=== PATIENT | male | born 1970 | race Caucasian/White ===

== ENCOUNTER 2017-01-05 18:05 | Emergency (ER) | payer BC ==
[~2017-01-05] VITALS: Ht 182.9 cm; Wt 79.8 kg
[~2017-01-05 18:05] MED LIST: ADVIN25050 INH; ALBU1AER9 INH; MONT1TAB3 PO
[2017-01-05 18:09] VITALS: TEMP 36.5; Ht 182.9 cm; Wt 79.8 kg
[2017-01-05] MEDS ORDERED: SNG10 PO (18:24)
[2017-01-05] MEDS ORDERED: ALBU18002 INH (18:24)
[2017-01-05] MEDS ORDERED: ADVIN25/60 INH (18:24)
[2017-01-05] MEDS ORDERED: FLNIN/ NAE (18:24)
[2017-01-05] MEDS ORDERED: IBUPROFEN 200 MG TAB PO STA (18:29)
[2017-01-05] MEDS ORDERED: KETOROLAC TROMETHAMINE 60 MG/2 ML VIAL IM STA (18:34)
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
[2017-01-05 19:40] VITALS: BP 151/106; PULSE 78; O2SAT 96
== END 2017-01-05 19:36 | disposition home or self-care (01) ==
LOC: C.EDB 18:07 → C.EDD 19:36
DX: T14.8 Other injury of unspecified body region (principal); M79.631 Pain in right forearm; M79.645 Pain in left finger(s); V18.0XXA Pedal cycle driver injured in noncollision transport accident in nontraffic accident, initial encounter; Y92.89 Other specified places as the place of occurrence of the external cause; J45.909 Unspecified asthma, uncomplicated; Z79.899 Other long term (current) drug therapy

== ENCOUNTER 2023-02-02 18:45 | Inpatient (IN) ==
[2023-02-02] MEDS ORDERED: ONDANSETRON INJ 2 MG/ML 2 ML VIAL IV STA (18:48)
[2023-02-02] MEDS ORDERED: HYDROmorphone INJ 1 MG/ML SYRINGE IV STA ×2 (18:48→20:23)
[2023-02-02] MEDS ORDERED: ceFAZolin 2000MG 2,000 MG/15 ML SYR IV STA (18:48)
[2023-02-02] MEDS ORDERED: SODIUM CHLORIDE 0.9% 1000ML 1,000 ML IV SCH ×2 (19:00→23:15)
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
[2023-02-02 19:06] LABS: Basophils # (auto) 0.01 K/uL (0-0.2); Basophils % (auto) 0.1 %; Hematocrit (blood only) 40.8 % (42.0-52.0); Hemoglobin 14.3 g/dl (14.0-18.0); Immature Granulocytes # (auto) 0.04 K/uL (0.01-0.20); Immature Granulocytes % (auto) 0.5 %; Lymphocytes # (auto) 0.78 K/uL (1.2-3.4); Lymphocytes % (auto) 8.9 %; Mean Corpuscular Hemoglobin 31.5 pg (25.0-34.0); Mean Corpuscular Volume 89.9 fL (80.0-100.0); Mean Platelet Volume 10.8 fL (9.4-12.4); Monocytes # (auto) 0.49 K/uL (0.11-0.59); Monocytes % (auto) 5.6 %; Neutrophils # (auto) 7.49 K/uL (1.40-6.50); Neutrophils % (auto) 84.9 %; Platelet Count 302 K/uL (130-400); RDW Coefficient of Variation 11.9 % (11.5-14.5); RDW Standard Deviation 38.8 fL (36.4-46.3); Red Blood Count 4.54 M/uL (4.70-6.10); White Blood Count 8.81 K/ul (4.8-10.8)
[2023-02-02] MEDS ORDERED: OPTIRAY 320 100ml IV ONE (19:17)
[2023-02-02 19:22] LABS: Albumin Globulin Ratio 1.7 (0.9-2); Albumin Level 4.2 gm/dl (3.4-5.0); BUN Creatinine Ratio 18.3 (10-20); Bilirubin,Total 0.5 mg/dl (0.2-1.0); Calcium 8.9 mg/dl (8.6-10.3); Creatinine Clr Calc Pharmacy 80.6 ml/min; Est GFR (African American) 83.2 ml/min; Est GFR (Non-African American) 71.7 ml/min; Globulin 2.5 gm/dl (2.5-4.0); Potassium 4.1 mmol/L (3.5-5.1); Total Protein 6.7 gm/dl (6.0-8.3)
[2023-02-02] MEDS ORDERED: LORazepam 2 MG/1 ML VIAL IV STA (19:24)
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
[2023-02-02] MEDS ORDERED: BUPIVACAINE 0.5 % 5 MG/1 ML MPF 30ML VIAL ONE (21:28)
[2023-02-02] MEDS ORDERED: ePHEDrine sulfate 50 MG/ML AMP IV PRN (21:43)
[2023-02-02] MEDS ORDERED: ATROPINE SULFATE 0.1 MG/ML 10ML SYR IV PRN (21:43)
[2023-02-02] MEDS ORDERED: ONDANSETRON INJ 2 MG/ML 2 ML VIAL IV PRN ×2 (21:43→23:07)
[2023-02-02] MEDS ORDERED: PROMETHAZINE HCL 6.25 MG in SODIUM CHLORIDE 0.9% 50 ML IV PRN (21:43)
[2023-02-02] MEDS ORDERED: HYDROmorphone INJ 2 MG/ML SYR/VIAL IV PRN (21:43)
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
[2023-02-02] MEDS ORDERED: fentaNYL citrate PF 100 MCG/2 ML VIAL ONE ×2 (22:03→23:27)
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
[2023-02-02] MEDS ORDERED: PROPOFOL IV EMULSION 10 MG/ML 20 ML VIAL IV ONE (22:58)
[2023-02-02] MEDS ORDERED: GLYCOPYRROLATE 0.2 MG/ML VIAL ONE (22:58)
[2023-02-02] MEDS ORDERED: DEXAMETHASONE SOD INJ 4 MG/ML VIAL ONE (22:58)
[2023-02-02] MEDS ORDERED: LIDOCAINE 2% 2 ML VIAL/AMP(20MG/ML) INFIL ONE (22:58)
[2023-02-02] MEDS ORDERED: ROCURONIUM BROMIDE 10 MG/ML 5 ML VIAL IV ONE (22:58)
[2023-02-02] MEDS ORDERED: NEOSTIGMINE METHYLSULFATE 1 MG/ML 10ML VIAL ONE (22:58)
[2023-02-02] MEDS ORDERED: KETOROLAC 30 MG/ML VIAL ONE (22:58)
[2023-02-02] MEDS ORDERED: SUCCINYLCHOLINE CHLORIDE 20 MG/ML 10 ML VIAL IV ONE (22:58)
[2023-02-02] MEDS ORDERED: MoRPHine SULFATE 2 MG/ML CARP ONE (23:01)
[2023-02-02] MEDS ORDERED: NALOXONE HCL 0.4 MG/1 ML VIAL/CARP IV PRN (23:07)
[2023-02-02] MEDS ORDERED: MAGNESIUM HYDROXIDE SUSP 30 ML UDC PO PRN (23:07)
[2023-02-02] MEDS ORDERED: METOCLOPRAMIDE HCL INJ 5 MG/ML 2 ML VIAL IV PRN (23:07)
[2023-02-02] MEDS ORDERED: bisacodyL 10 MG SUPP PR PRN (23:07)
--- NOTE | 2023-02-02 23:12 | Post Operative Brief Note ---
Immediate Post Op Note v1 Date of Surgery February 02, 2023 Pre & Post Diagnosis Operation Date: 02/02/23 21:30 Pre-Op Diagnosis: Open fracture of right distal radius and ulna Post-Op Diagnosis: Open fracture of right distal radius and ulna I identified the patient and participated in the time-out.: Yes Procedure Operation Date: 02/02/23 21:30 Actual Procedures p left shoulder closed reduction(Right) - Ananth Mcbride DO s right radius/ulna irrigation and debridement with external fixation - Ananth Mcbride DO Surgeon Ananth Mcbride DO Aed Trainer none Estimated Blood Loss 5 Findings Consistent with Post-Op Diagnosis see dication Complications none
--- NOTE | 2023-02-02 23:22 | Anesthesiology Progress Note ---
Date of Service February 02, 2023 Anesthesia Post Procedure Vital Signs Vital Signs: Temp Pulse Resp BP Pulse Ox O2 Del Method 02/02/23 21:10 74 16 95 02/02/23 21:01 78 15 98 02/02/23 21:01 198/80 H 02/02/23 21:00 70 14 97 02/02/23 20:50 70 15 96 02/02/23 20:40 70 16 97 02/02/23 20:30 73 13 98 02/02/23 20:30 160/99 H 02/02/23 20:20 72 17 95 02/02/23 20:15 70 15 94 02/02/23 20:15 145/95 H 02/02/23 20:10 77 17 91 02/02/23 20:00 79 22 92 02/02/23 20:00 142/96 H 02/02/23 20:08 95 Room Air 02/02/23 19:45 80 20 162/96 H 96 Room Air 02/02/23 19:30 80 20 158/98 H 96 Room Air 02/02/23 19:27 86 22 173/107 H 96 Room Air 02/02/23 19:00 69 20 131/79 94 Room Air 02/02/23 18:57 69 20 119/85 94 Room Air 02/02/23 18:48 87 02/02/23 18:49 36.7 C 81 18 137/87 98 Room Air Transfer of Care Handoff Completed per policy Notes Mental Status: alert / awake / arousable Patient Amnestic to Procedure: Yes Nausea / Vomiting: adequately controlled Pain: adequately controlled Airway Patency, RR, SpO2: stable & adequate BP & HR: stable & adequate Hydration State: stable & adequate Anesthetic Complications: no major complications apparent
[2023-02-02] MEDS: fentaNYL citrate PF 100 MCG/2 ML VIAL IV PRN ×2 (23:28→23:34)
[2023-02-02] MEDS ORDERED: HYDROmorphone INJ 0.5 MG/0.5 ML SYR ONE (23:52)
[2023-02-03] MEDS: KETOROLAC TROMETHAMINE 15 MG/ML VIAL IV SCH ×4 (02:18→17:30)
[2023-02-03 02:22] LABS: Appearance Urine Clear (Clear); Bilirubin Urine Negative (Negative); Blood Urine Negative (Negative); Color Urine Yellow; Glucose Urine UA Negative (Negative); Ketones Urine 1+ (Negative); Leukocyte Esterase Urine Negative (Negative); Nitrite Urine Negative (Negative); Protein Urine Negative (Negative); Specific Gravity Urine 1.043 (1.000-1.030); Urobilinogen Urine Negative (Negative); pH Urine 5.5 (4.5-7.5)
[2023-02-03] MEDS: ceFAZolin 2000MG 2,000 MG/15 ML SYR IV SCH ×2 (06:19→14:02)
--- NOTE | 2023-02-03 07:30 | Fluoroscopy Report ---
FL wrist RT 2V CLINICAL HISTORY: Right wrist fracture. Reduction and fixation in OR. COMPARISON STUDY: Right forearm 02/02/2023. FLUOROSCOPY TIME: 12.5 seconds. FLUOROSCOPY IMAGES: 5 Ka,r: 0.2 mGy FINDINGS: Status post reduction of the distal radius and ulnar fractures. An external fixator device is noted. There is improved anatomic alignment. IMPRESSION: Fluoroscopic assistance as above. ACT 112: Negative or not required by law. Electronically signed by: Ras Ruvalcaba M.D. 02/03/2023 7:29 AM
--- NOTE | 2023-02-03 07:36 | Fluoroscopy Report ---
FL shoulder LT 1V CLINICAL HISTORY: REDUCTION OF LT SHOULDER IN OR COMPARISON STUDY: Left shoulder 02/02/2023. FLUOROSCOPY TIME: 2 seconds FLUOROSCOPY IMAGES: 1 Ka,r: 0.2 mGy FINDINGS: Single fluoroscopic spot image of the left shoulder shows no fracture or dislocation. The p atient is status post reduction of a left shoulder dislocation. IMPRESSION: Status post reduction of a left shoulder dislocation. ACT 112: Negative or not required by law. Electronically signed by: Ras Ruvalcaba M.D. 02/03/2023 7:34 AM
[2023-02-03] MEDS: MULTIVITAMIN TAB PO SCH (09:12)
[2023-02-03] MEDS: DOCUSATE SODIUM 100 MG CAP PO SCH ×2 (09:12→19:51)
--- NOTE | 2023-02-03 11:16 | Electrocardiogram Report ---
Test Reason : Blood Pressure : / mmHG Vent. Rate : 059 BPM Atrial Rate : 059 BPM P-R Int : 144 ms QRS Dur : 122 ms QT Int : 436 ms P-R-T Axes : 064 030 031 degrees QTc Int : 431 ms Sinus bradycardia with sinus arrhythmia Right bundle branch block Anterolateral T wave inversions Abnormal ECG When compared with ECG of 19-FEB-2014 16:21, T wave inversion now evident in Anterior leads Confirmed by Giuseppe Guadarrama ([id number]) on 02/03/2023 11:16:17 AM Referred By: REFERRED SELF Confirmed By:Giuseppe Guadarrama
--- NOTE | 2023-02-03 13:09 | Orthopedic Progress Note ---
Date of Service February 03, 2023 Assessment & Plan (1) Open fracture of right distal radius and ulna: Plan: 52-year-old male status right distal radius and ulna irrigation and debridement with placement of wrist spanning external fixator, status post closed reduction of left shoulder dislocation Nonweightbearing bilateral upper extremity Pain control Continue IV antibiotics PT/OT Likely plan for discharge home with definitive fixation as an outpatient Admission and Anticipated Discharge Date Admission Date: February 02, 2023 Subjective Patient seen and examined, no acute events overnight. Pain control much improved. Has had some difficulty voiding Physical Exam Constitutional: General: No acute distress, alert and oriented person place and time Musculoskeletal: -Left upper extremity -There is tenderness to palpation of the distal clavicle, arm remains in simple sling -Sensation intact to light touch a/m/r/u - fires b/t/wf/we/epl/fpl/tomi + rad Right upper extremity -No pain at the shoulder elbow -RUE spanning external fixator in place pin sites clean and dry -Sensation intact to light srad/med/uln notes some mild paresthesias -Able to wiggle fingers + rad pulse with bcr over digits Results & Data Vital Signs (Past 12 Hours) Vital Signs Temp Pulse Resp BP Pulse Ox O2 Del Method O2 Flow Rate 02/03/23 12:31 36.6 C 58 L 16 156/81 H 95 Room Air 02/03/23 07:34 36.8 C 74 16 139/75 95 Nasal Cannula 1 02/03/23 03:30 36.9 C 63 18 149/61 H 96 Nasal Cannula 1 02/03/23 01:30 36.9 C 65 18 174/73 H 94 Nasal Cannula 1 02/03/23 01:50 36.9 C 73 16 172/67 H 97 Nasal Cannula 1 (1) Open fracture of right distal radius and ulna Encounter type: initial encounter Open fracture type: open type I or II Qualified Code(s): S52.501B - Unspecified fracture of the lower end of right radius, initial encounter for open fracture type I or II; S52.601B - Unspecified fracture of lower end of right ulna, initial encounter for open fracture type I or II
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
--- NOTE | 2023-02-03 13:40 | XRay Report ---
XR wrist RT min 3V routine CLINICAL HISTORY: Right forearm fracture. Postop. COMPARISON STUDY: Right forearm 02/02/2023. FINDINGS: Status post external fixation of the fractures involving the base of the first metacarpal, distal radius, distal ulna. There is improved anatomic alignment. The external fixators are located a t the second metacarpal and mid radius.. Soft tissue swelling again noted within the right wrist. IMPRESSION: Status post external fixation with improved anatomic alignment of the fractures at the d istal radius, distal ulna, and first metacarpal. ACT 112: Negative or not required by law. Electronically signed by: Ras Ruvalcaba M.D. 02/03/2023 1:39 PM
[2023-02-03] MEDS ORDERED: ALBUTEROL HFA 8 GM INHALER INH PRN (16:50)
[2023-02-03] MEDS ORDERED: PREDNISONE 10 MG PO SCH (17:00)
[2023-02-03] MEDS: PREDNISONE 10 MG PO SCH (17:52)
[2023-02-03] MEDS: cephALEXin 500 MG CAP PO SCH (19:56)
[2023-02-03] MEDS: oxyCODONE HCL IR 5 MG TAB (IMMEDIATE RELEASE) PO PRN (19:56)
[2023-02-03] MEDS ORDERED: SENNA 8.6 MG TAB PO SCH (21:00)
[2023-02-04] MEDS: oxyCODONE HCL IR 5 MG TAB (IMMEDIATE RELEASE) PO PRN ×3 (02:38→12:03)
--- NOTE | 2023-02-04 07:15 | Orthopedic Progress Note ---
Date of Service February 04, 2023 Assessment & Plan (1) Open fracture of right distal radius and ulna: Plan: 52-year-old male status right distal radius and ulna irrigation and debridement with placement of wrist spanning external fixator, status post closed reduction of left shoulder dislocation Nonweightbearing bilateral upper extremity Pain control -we will continue oxycodone Continue IV antibiotics -we will continue on orals outpatient PT/OT Likely plan for discharge home with definitive fixation as an outpatient Admission and Anticipated Discharge Date Admission Date: February 02, 2023 Subjective Postop day 2 Patient sitting in chair next to his bed. Patient states that he has been up and ambulating and was able to ambulate to the chair by himself without help. Pain control appears to be adequate with his oxycodone. He states that the swelling in his right hand has gone down considerably overnight. We discussed the need for continued elevation of the right hand to help with this. Patient is moving his fingers a little bit better this morning. Encouraged to do so. He is planning on going home today. Physical Exam Physical Exam: Sling is in place of the left upper extremity. He has good mobility of his left hand, wrist, elbow. Shoulder is mildly swollen from noted dislocation and also distal clavicle fracture. Dressings on the right wrist and forearm are clean, dry, and intact. Ex-Fix is intact. Continues to have some mild swelling in all of his fingers. Mild tenderness in his thumb from metacarpal fracture. Capillary refill is less than 2 seconds Results & Data Vital Signs (Past 12 Hours) Vital Signs Temp Pulse Resp BP Pulse Ox O2 Del Method 02/03/23 22:52 36.7 C 62 20 185/81 H 95 Room Air 02/03/23 20:10 36.4 C L 58 L 18 186/89 H 95 Room Air (1) Open fracture of right distal radius and ulna Encounter type: initial encounter Open fracture type: open type I or II Qualified Code(s): S52.501B - Unspecified fracture of the lower end of right radius, initial encounter for open fracture type I or II; S52.601B - Unspecified fracture of lower end of right ulna, initial encounter for open fracture type I or II
[2023-02-04] MEDS: cephALEXin 500 MG CAP PO SCH (08:26)
[2023-02-04] MEDS: DOCUSATE SODIUM 100 MG CAP PO SCH (08:27)
[2023-02-04] MEDS: MULTIVITAMIN TAB PO SCH (08:27)
[2023-02-04] MEDS: PREDNISONE 10 MG PO SCH (08:29)
--- NOTE | 2023-02-04 11:25 | XRay Report ---
LEFT SHOULDER 3 VIEWS CLINICAL HISTORY: Recent shoulder dislocation. FINDINGS: 3 views of the left shoulder are compared to study dated 02/02/2023. The skeletal structures are well-mineralized. There is a comminuted and displaced fracture of the distal clavicle. No disloc ation is seen. A reverse Hill-Sachs lesion is again seen in the anterior aspect of the humeral head. Mild overlying soft tissue edema is noted. The visualized left lung parenchyma appears clear. IMPRESSION: 1. Comminuted and displaced fracture of the distal left clavicle. 2. A reverse Hill-Sachs injury is seen in the anterior humeral head. 3. No dislocation. Electronically signed by: Kemar Guidry M.D. 02/04/2023 11:23 AM
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
== END 2023-02-04 12:29 | disposition home or self-care (01) | DRG 512 ==
LOC: ED 18:45 → 3N 23:07

== ENCOUNTER 2024-01-15 13:02 | Inpatient (IN) ==
[2024-01-15 13:39] LABS: Basophils # (auto) 0.02 K/uL (0.00-0.20); Basophils % (auto) 0.2 %; Eosinophils # (auto) 0.22 K/uL (0.00-0.50); Eosinophils % (auto) 2.7 %; Hematocrit (blood only) 43.5 % (42.0-52.0); Hemoglobin 14.9 g/dl (14.0-18.0); Immature Granulocytes # (auto) 0.14 K/uL (0.01-0.20); Immature Granulocytes % (auto) 1.7 %; Lymphocytes % (auto) 4.9 %; Mean Corpuscular Hemoglobin 30.3 pg (25.0-34.0); Mean Corpuscular Hgb Conc 34.3 g/dL (32.0-36.0); Mean Corpuscular Volume 88.6 fL (80.0-100.0); Mean Platelet Volume 10.4 fL (9.4-12.4); Monocytes # (auto) 0.48 K/uL (0.11-0.59); Monocytes % (auto) 5.9 %; Neutrophils # (auto) 6.93 K/uL (1.40-6.50); Neutrophils % (auto) 84.6 %; Platelet Count 301 K/uL (130-400); RDW Coefficient of Variation 12.7 % (11.5-14.5); RDW Standard Deviation 40.7 fL (36.4-46.3); Red Blood Count 4.91 M/uL (4.70-6.10); White Blood Count 8.19 K/ul (4.8-10.8)
[2024-01-15 13:54] LABS: Albumin Globulin Ratio 1.1 (0.9-2); Albumin Level 3.7 gm/dl (3.4-5.0); Bilirubin,Total 1.6 mg/dl (0.2-1.0); Calcium 8.5 mg/dl (8.6-10.3); Creatinine Clr Calc Pharmacy 106.5 ml/min; Est GFR (African American) 113.1 ml/min; Est GFR (Non-African American) 97.6 ml/min; Globulin 3.3 gm/dl (2.5-4.0); Potassium 4.1 mmol/L (3.5-5.1)
[2024-01-15 14:01] LABS: Troponin I High Sensitivity 8.7 pg/ml (0-20)
[2024-01-15] MEDS: SODIUM CHLORIDE 0.9% 1,000 ML IV ONE (14:10)
--- NOTE | 2024-01-15 14:13 | XRay Report ---
SINGLE VIEW CHEST CLINICAL HISTORY: Atypical chest pain FINDINGS: A PA chest radiograph is compared to study dated 01/13/2024. The cardiomediastinal silhouette is unremarkable. Chronic interstitial thickening similar to previous. The lungs and pleural spaces a re clear. No pneumothorax is seen. The bony thorax is grossly intact. IMPRESSION: No active disease in the chest. ACT 112: Negative or not required by law. Electronically signed by: Kemar Guidry M.D. 01/15/2024 2:11 PM
[2024-01-15] MEDS: ALBUT/IPRATROP 3MG/0.5MG NEB 3 ML VIAL NEB STA (14:17)
[2024-01-15] MEDS: cefTRIAXone SODIUM 2,000 MG/50 ML BAG IV STA (14:17)
--- NOTE | 2024-01-15 14:27 | Emergency Department Note ---
Impression & Plan Flu-like symptoms, Fever, Wheezing, Elevated liver enzymes, Failure of outpatient treatment, Acute hyponatremia ED Provider Note NAME: SHERITA GILMORE AGE: 53 SEX: M : 1970 ARRIVES VIA: Walk-In INFORMANT: [Patient][family] ED PROVIDER(S): [Kemar Felder MD] CHIEF COMPLAINT: Respiratory problems, fever HISTORY OF PRESENT ILLNESS: The patient is a 53-year-old male who presents with ongoing respiratory issues and fever for several months. Things seem almost cyclical. The patient states he does have underlying COPD. The patient was in [facility] about a year ago. There was some malaria outbreaks during the time he was there. The patient states that it was about 4 or so months after the trip that he began to notice some fluctuating symptoms. Patient states that lately, he was on Augmentin, he was then switched to Bactrim. Despite these medications, he is no better. The patient has noticed some dark urine. He states that he has been using Tylenol and Motrin to help control the fever and aches. He states his symptoms are quite cyclical. No known tick bites. The patient has not had diarrhea, he did vomit once here in the ER although, this has not been typical for him at home. He does admit that his cough is at times productive. PMHx/PSHx/Social Hx: See Below PHYSICAL EXAM: GENERAL: Patient is in no acute distress. Shivering. HEENT: No acute trauma, normocephalic atraumatic, mucous membranes moist, no nasal congestion. NECK: No stridor, no adenopathy, no meningismus, trachea is midline. LUNGS: Wheezing bilaterally, diminished breath sounds bilaterally, no respiratory distress HEART: Without murmurs gallops or rubs, regular rate and rhythm. ABDOMEN: Soft, nontender, no peritonitis. EXTREMITIES: No cyanosis, full range of motion of all the joints without pain or difficulty. NEUROLOGIC: Oriented x 3, no acute motor or sensory deficits, no focal weakness. SKIN: Mild jaundice, no diaphoresis. DIFFERENTIAL DIAGNOSIS: Tickborne illness, malaria, viral illness, acute bronchitis or pneumonia, bacteremia or sepsis, dehydration, among others. EMERGENCY DEPARTMENT PROCEDURES: MEDICAL DECISION MAKING: There is no leukocytosis or concerning anemia. There is a normal platelet count. No coagulopathy. Sodium is low at 129, possibly from dehydration. There was no renal failure. Lactic acid level was not elevated making severe sepsis less likely. There were liver enzyme elevations. Certainly, viral illness or tickborne illness can cause elevation to the liver enzymes. There was a normal sinus rhythm on ECG, no obvious acute ischemia. Cardiac enzyme testing x 1 was not consistent with acute cardiac injury. Procalcitonin level was not elevated. Anaplasmosis and Babesia smears were negative, reference testing is pending. Lyme disease testing was negative. Respiratory bio fire was negative. Chest x-ray did not show CHF or pneumonia. On exam, the patient was shivering and appeared to have some rigors. He was wheezing. Patient received a DuoNeb, he was given IV saline, 1.5 L. He received IV ceftriaxone and IV Solu-Medrol. He received IV doxycycline. He developed a temperature elevation here and received a dose of oral Motrin, 600 milligrams. A malaria smear was ordered, this is pending. The patient presents with rigors, fever, the etiology for all this is unclear--tickborne illness is certainly a consideration despite his negative testing. I suppose malaria must be considered. A viral illness is certainly a possibility as well. I did speak with the patient and case management. I did speak with the on-call hospitalist. I do think given the circumstances, admission is warranted. The patient has failed outpatient management. Prior/Outside records/notes reviewed: None ECG per my interpretation: Indication was sepsis. The ECG shows a normal sinus rhythm with a rate of 94. There is a right bundle branch block. There is no acute ST elevation, no PVCs. The QTc is 450. Continuous Cardiac Monitoring: An order was placed for continuous cardiac monitoring. The monitor shows a rate of 89 with normal sinus rhythm. Imaging/x-ray results per my interpretation: Chest x-ray does not show mediastinal widening, pneumonia or pneumothorax. Chronic Medical/Social conditions affecting care: History of COPD. Care/Management discussed with: Case management, the on-call hospitalist. Level of care consideration(s): After review of the information above and other included data: --I believe the patient requires escalation of care to admission DISPOSITION: Admission Past Med/Surg History Problem List (Updated 01/15/24 @ 15:50 by Kemar Felder MD) Acute hyponatremia (Acute) Failure of outpatient treatment (Acute) Elevated liver enzymes (Acute) Wheezing (Acute) Fever (Acute) Flu-like symptoms (Acute) Cough Allergic rhinitis (Acute) Nasal cavity polyp (Acute) Coronary artery calcification Asthma uses before excercise and ~ 1 once daily recently Esophageal reflux (Acute) Medical History Closed head injury Closed fracture of left clavicle Closed posterior dislocation of left shoulder Open fracture of right distal radius and ulna Haemophilus influenzae infection 08/28/23--states recent positive culture, being treated w/ augmentin Cough increase in productive cough and asthma symptoms x ~1 yr - was seen and treated w/ augmentin by pcp>>>>(culture positive for Haemophilus influenzea, bacterial infection) states symptoms are greatly improved and have mostly resolved since starting treatment Nausea and vomiting after administration of anesthetic agent Seasonal allergies History of COVID-19 09/2022- treated with Paxlovid Surgical History History of colonoscopy (~08/2023) History of surgery on arm Hx of wisdom tooth extraction History of nasal polypectomy Fracture of finger of right hand Family History Mother Multiple myeloma Social History Smoking Status: Never smoker Second Hand Exposure: No; Do You Dip or Chew Tobacco: No; Hx Alcohol Use: Yes (1 per day) Alcohol type: beer Hx Substance Use: No Preferred Language: Kazakh Communication Ability: Effective [place] [employer] Supervisor Required: No Beliefs That Will Affect Care: None marital status: Current Living Situation: Spouse current occupational status: employed Feels Safe at Home: Yes Assistive Devices: Glasses Allergies Allergies Allergy/AdvReac Type Severity Reaction Status Date / Time latex Allergy Intermediate Rash Verified 01/13/24 15:02 Home Meds Home Medications Medication Instructions Recorded Confirmed azelastine 205.5 mcg (0.15 %) 2 spray intranasal DAILY PRN 02/02/23 01/13/24 nasal spray Congestion fluticasone 500 mcg-salmeterol 50 1 inh inhalation BID 02/02/23 01/13/24 mcg/dose blistr powdr for inhalation (Advair Diskus) fluticasone propionate 50 2 spray intranasal BID PRN 02/02/23 01/13/24 mcg/actuation nasal Congestion spray,suspension Previous Rx's Medication Instructions Recorded montelukast 10 mg tablet 10 mg PO DAILY #90 tabs 01/25/23 albuterol sulfate 90 mcg/actuation See Rx Instructions .Route 08/15/23 aerosol inhaler .COMPLEX #17 grams tobramycin 0.3 % eye drops See Rx Instructions .Route 10/10/23 .COMPLEX #5 mL amoxicillin 875 mg-potassium 1 tab PO BID #20 tabs 11/27/23 clavulanate 125 mg tablet benzonatate 100 mg capsule 100 mg PO TID #30 caps 11/27/23 albuterol sulfate 1.25 mg/3 mL 1.25 mg (3 mL) inhalation QID PRN 12/05/23 solution for nebulization shortness of breath or wheezing #75 mL prednisone 10 mg tablet See Rx Instructions PO DAILY #40 12/05/23 tabs sulfamethoxazole 800 1 tab PO BID #30 tabs 12/05/23 mg-trimethoprim 160 mg tablet (Bactrim DS) sulfamethoxazole 800 1 tab PO Q12H #20 tabs 01/13/24 mg-trimethoprim 160 mg tablet (Bactrim DS) Results & Data (ED) Vital Signs Vital Signs - 24 hr 01/15/24 13:10 01/15/24 14:13 01/15/24 14:13 Temperature 36.9 C Temperature Source Temporal Artery Scan Pulse Rate 99 H Pulse Rate [Apical] 88 Pulse Rhythm Regular Pulse Rhythm [Apical] Regular Pulse Strength Normal Pulse Strength [Apical] Normal Respiratory Rate 20 20 Respiratory Effort / Characteristics Non-Labored Spontaneous Non-Labored Spontaneous Respiratory Depth Normal Normal Respiratory Pattern Regular Blood Pressure 151/86 H Blood Pressure [Left Arm] 146/110 H Blood Pressure Mean 107 Blood Pressure Mean [Left Arm] 122 Blood Pressure Position [Left Arm] Lying Pulse Oximetry 95 99 99 Oxygen Delivery Method Room Air Room Air Room Air Sepsis Recent Fever Within 48 Hours No Sepsis New/Unexplained Change in Mental Status N/A Sepsis Action Taken by Nursing No Action Required 01/15/24 14:13 01/15/24 14:36 Temperature Temperature Source Pulse Rate 88 89 Pulse Rate [Apical] Pulse Rhythm Regular Pulse Rhythm [Apical] Pulse Strength Pulse Strength [Apical] Respiratory Rate 20 Respiratory Effort / Characteristics Respiratory Depth Respiratory Pattern Blood Pressure Blood Pressure [Left Arm] Blood Pressure Mean Blood Pressure Mean [Left Arm] Blood Pressure Position [Left Arm] Pulse Oximetry 99 Oxygen Delivery Method Room Air Sepsis Recent Fever Within 48 Hours Sepsis New/Unexplained Change in Mental Status Sepsis Action Taken by Half-Way Medications Current Medication List: was personally reviewed by me Laboratory Data Attestation: I reviewed the patient's lab results. 01/15/24 13:26 01/15/24 13:26 Lab Results 01/15/24 01/15/24 01/15/24 Range/Units 13:26 14:31 Unknown WBC 8.19 (4.8-10.8) K/ul RBC 4.91 (4.70-6.10) M/uL Hgb 14.9 (14.0-18.0) g/dl Hct 43.5 (42.0-52.0) % MCV 88.6 (80.0-100.0) fL MCH 30.3 (25.0-34.0) pg MCHC 34.3 (32.0-36.0) g/dL RDW Std Deviation 40.7 (36.4-46.3) fL RDW Coeff of Lauryn 12.7 (11.5-14.5) % Plt Count 301 (130-400) K/uL MPV 10.4 (9.4-12.4) fL Immature Gran % (Auto) 1.7 % Neut % (Auto) 84.6 % Lymph % (Auto) 4.9 % [place] % (Auto) 5.9 % Eos % (Auto) 2.7 % Baso % (Auto) 0.2 % Neut # (Auto) 6.93 H (1.40-6.50) K/uL Lymph # (Auto) 0.40 L (1.20-3.40) K/uL [place] # (Auto) 0.48 (0.11-0.59) K/uL Eos # (Auto) 0.22 (0.00-0.50) K/uL Baso # (Auto) 0.02 (0.00-0.20) K/uL Immature Gran # (Auto) 0.14 (0.01-0.20) K/uL PT 11.1 (9.0-12.0) Seconds INR 1.0 (0.9-1.1) APTT 27 (21-31) Seconds PTT Ratio 1.0 Sodium 129 L (136-145) mmol/L Potassium 4.1 (3.5-5.1) mmol/L Chloride 97 L (98-107) mmol/L Carbon Dioxide 25 (21-32) mmol/L Anion Gap 7 (3-11) BUN 6 (6-23) mg/dl Creatinine 0.86 (0.6-1.4) mg/dl Est Cr Clr Drug Dosing 106.5 ml/min Est GFR ( Amer) 113.1 ml/min Est GFR (Non-Af Amer) 97.6 ml/min BUN/Creatinine Ratio 7.0 L (10-20) Glucose 126 H (70-99(Fasting)) mg/dl Lactate 1.7 (0.4-2.0) mmol/L Calcium 8.5 L (8.6-10.3) mg/dl Total Bilirubin 1.6 H (0.2-1.0) mg/dl AST 125 H (13-39) U/L ALT 226 H (7-52) U/L Alkaline Phosphatase 232 H (34-104) U/L Troponin I High Sens 8.7 (0-20) pg/ml Total Protein 7.0 (6.0-8.3) gm/dl Albumin 3.7 (3.4-5.0) gm/dl Globulin 3.3 (2.5-4.0) gm/dl Albumin/Globulin Ratio 1.1 (0.9-2) Procalcitonin 0.48 (0-0.5) ng/ml Adenovirus (PCR) Not Detected (NotDetected) Anaplasma Smear See Comment Babesia Smear See Comment B. pertussis DNA (PCR) Not Detected (NotDetected) B.parapertussis DNA PCR Not Detected (NotDetected) Lyme Disease Screen Negative (Negative) C. pneumoniae DNA (PCR) Not Detected (NotDetected) Coronavirus OC43 (PCR) Not Detected (NotDetected) Coronavirus HKU1 (PCR) Not Detected (NotDetected) Coronavirus 229E (PCR) Not Detected (NotDetected) SARS-CoV-2 (PCR) Not Detected (NotDetected) Coronavirus NL63 (PCR) Not Detected (NotDetected) Human Metapneumovir PCR Not Detected (NotDetected) Influenza Type A (PCR) Not Detected (NotDetected) Influenza Type B (PCR) Not Detected (NotDetected) M. pneumoniae (PCR) Not Detected (NotDetected) Parainfluenza 1 (PCR) Not Detected (NotDetected) Parainfluenza 2 (PCR) Not Detected (NotDetected) Parainfluenza 3 (PCR) Not Detected (NotDetected) Parainfluenza 4 (PCR) Not Detected (NotDetected) RSV (PCR) Not Detected (NotDetected) Entero/Rhino (PCR) Not Detected (NotDetected) Administered Medications Discontinued Medications Albuterol (Albut/Ipratrop 3mg/0.5mg Neb 3 Ml Vial) 3 ml NEB NOW STA; Protocol Stop: 01/15/24 14:14 Last Admin: 01/15/24 14:17 Dose: 3 ml Documented By: FARZANA Sodium Chloride (Nss) 1,000 mls @ 999 mls/hr IV .Q1H1M ONE Stop: 01/15/24 14:56 Last Infusion: 01/15/24 15:12 Dose: Infused Documented By: Admin: 01/15/24 14:10 Dose: 999 mls/hr Documented By: FARZANA Ceftriaxone Sodium (Rocephin) 2,000 mg in 50 mls @ 100 mls/hr IV NOW STA Stop: 01/15/24 14:40 Last Infusion: 01/15/24 14:48 Dose: Infused Documented By: Admin: 01/15/24 14:17 Dose: 100 mls/hr Documented By: FARZANA Sodium Chloride (Nss) 500 mls @ 999 mls/hr IV .Q31M ONE Stop: 01/15/24 16:09 Last Admin: 01/15/24 15:45 Dose: 999 mls/hr Documented By: FARZANA Ibuprofen (Ibuprofen 600 Mg Tab) 600 mg PO NOW STA Stop: 01/15/24 15:52 Last Admin: 01/15/24 15:54 Dose: 600 mg Documented By: FARZANA Methylprednisolone (Methylprednisolone 125 Mg/2 Ml Vial) 60 mg IV NOW STA Stop: 01/15/24 15:42 Last Admin: 01/15/24 15:45 Dose: 60 mg Documented By: SNS Imaging Data Radiologist's Impression: Chest X-Ray 01/15/24 13:13 SINGLE VIEW CHEST CLINICAL HISTORY: Atypical chest pain FINDINGS: A PA chest radiograph is compared to study dated 01/13/2024. The cardiomediastinal silhouette is unremarkable. Chronic interstitial thickening similar to previous. The lungs and pleural spaces are clear. No pneumothorax is seen. The bony thorax is grossly intact. IMPRESSION: No active disease in the chest. ACT 112: Negative or not required by law. Electronically signed by: Kemar Guidry M.D. 01/15/2024 2:11 PM Discharge Plan Visit Data Chief Complaint: Respiratory Problems Stated Complaint: FEVER,ASTHMATIC,DEHYDRATION,REF BY TAMEKA TREVINO ED Provider: Kemar Felder Discharge Problem: Flu-like symptoms, Fever, Wheezing, Elevated liver enzymes, Failure of outpatient treatment, Acute hyponatremia Patient Disposition: Admitted As Inpatient Condition: Fair Forms Stand Alone Forms: [facility] Prescriptions Prescriptions: No Action montelukast 10 mg tablet 10 mg PO DAILY Qty: 90 3RF albuterol sulfate 90 mcg/actuation HFA aerosol inhaler See Rx Instructions .ROUTE .COMPLEX Qty: 17 11RF Dose Instruction: 2 PUFFS EVERY 4 HOURS NEEDED FOR SHORTNESS OF BREATH OR WHEEZING Rx Instructions: 2 PUFFS EVERY 4 HOURS NEEDED FOR SHORTNESS OF BREATH OR WHEEZING tobramycin 0.3 % drops See Rx Instructions .ROUTE .COMPLEX Qty: 5 0RF Rx Instructions: Use 1-2 drops in the affected eye every 4 hours until improvement.; benzonatate 100 mg capsule 100 mg PO TID Qty: 30 0RF amoxicillin-pot clavulanate 875-125 mg tablet 1 tab PO BID Qty: 20 0RF prednisone 10 mg tablet See Rx Instructions PO DAILY Qty: 40 0RF Rx Instructions: TAKE 4 TABS DAILY X4 DAYS, 3 TABS DAILY X4 DAYS, 2 TABS DAILY X4 DAYS, AND 1 TAB DAILY X4 DAYS PO DAILY; With Food. sulfamethoxazole-trimethoprim [Bactrim DS] 800-160 mg tablet 1 tab PO BID Qty: 30 0RF albuterol sulfate 1.25 mg/3 mL solution for nebulization 1.25 mg inhalation QID PRN (Reason: shortness of breath or wheezing) Qty: 75 0RF sulfamethoxazole-trimethoprim [Bactrim DS] 800-160 mg tablet 1 tab PO Q12H Qty: 20 0RF fluticasone propion-salmeterol [Advair Diskus] 500-50 mcg/dose blister with device 1 inh INHALATION BID fluticasone propionate 50 mcg/actuation spray,suspension 2 spray intranasal BID PRN (Reason: Congestion) azelastine 205.5 mcg (0.15 %) spray,non-aerosol 2 spray intranasal DAILY PRN (Reason: Congestion) Rx Instructions: administer into each nostril Referrals Referrals: Julian Trevino MD [Primary Care Provider] - Discharge Problem: Fever Qualifiers: Fever type: unspecified Qualified Code(s): R50.9 - Fever, unspecified
--- NOTE | 2024-01-15 14:38 | Electrocardiogram Report ---
Test Reason : Blood Pressure : / mmHG Vent. Rate : 094 BPM Atrial Rate : 094 BPM P-R Int : 108 ms QRS Dur : 136 ms QT Int : 360 ms P-R-T Axes : 053 -10 028 degrees QTc Int : 450 ms Sinus rhythm Right bundle branch block Possible Inferior infarct , age undetermined Abnormal ECG When compared with ECG of 02-FEB-2023 18:50, CA interval has decreased Vent. rate has increased BY 35 BPM Borderline criteria for Inferior infarct are now Present T wave inversion no longer evident in Anterior leads Confirmed by Tyler Bonilla ([id number]) on 01/15/2024 2:38:37 PM Referred By: Confirmed By:Schuyler Bonilla
[2024-01-15 14:43] LABS: Adenovirus PCR Not Detected (NotDetected); Bordetella parapertussis PCR Not Detected (NotDetected); Bordetella pertussis PCR Not Detected (NotDetected); Chlamydia pneumoniae PCR Not Detected (NotDetected); Coronavirus 229E PCR Not Detected (NotDetected); Coronavirus CoV-2 (COVID19)PCR Not Detected (NotDetected); Coronavirus HKU1 PCR Not Detected (NotDetected); Coronavirus NL63 PCR Not Detected (NotDetected); Coronavirus OC43PCR Not Detected (NotDetected); Human Metapneumovirus PCR Not Detected (NotDetected); Influenza A PCR Not Detected (NotDetected); Influenza B PCR Not Detected (NotDetected); Mycoplasma pneumoniae PCR Not Detected (NotDetected); Parainfluenza Virus 1 PCR Not Detected (NotDetected); Parainfluenza Virus 2 PCR Not Detected (NotDetected); Parainfluenza Virus 3 PCR Not Detected (NotDetected); Parainfluenza Virus 4 PCR Not Detected (NotDetected); Respiratory Syncytial VirusPCR Not Detected (NotDetected); Rhinovirus/Enterovirus PCR Not Detected (NotDetected)
[2024-01-15 14:50] LABS: Partial Thromboplastin Time 27 Seconds (21-31); Prothrombin Time 11.1 Seconds (9.0-12.0)
[2024-01-15] MEDS: SODIUM CHLORIDE 0.9% 500 ML IV ONE (15:45)
[2024-01-15] MEDS: methylPREDNISolone 125 MG/2 ML VIAL IV STA (15:45)
[2024-01-15] MEDS: IBUPROFEN 600 MG TAB PO STA (15:54)
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
[2024-01-15] MEDS: DOXYCYCLINE HYCLATE 100 MG in DEXTROSE 5% MINI-B 100 ML IV STA (17:26)
[2024-01-15 17:39] LABS: C Reactive Protein 16.47 mg/dl (0-0.5)
[2024-01-15] MEDS ORDERED: ALBUTEROL 0.5% NEB SOLN 2.5 MG/0.5 ML VIAL NEB PRN (17:48)
[2024-01-15] MEDS: LACTATED RINGER'S 1,000 ML IV SCH (18:23)
[2024-01-15] MEDS: PANTOprazole 40 MG TAB PO STA (18:23)
[2024-01-15 19:06] LABS: HepB Surface Ag with confirm Negative (Negative)
[2024-01-15 19:11] LABS: HepC Ab Rflx HepCQuant RNA Negative (Negative)
[2024-01-15] MEDS: guaiFENesin 600 MG TABCR PO SCH (21:07)
--- NOTE | 2024-01-15 21:30 | Ultrasound Report ---
Exam(s): US LIVER EXAM: US Abdomen Limited, Right Upper Quadrant CLINICAL HISTORY: Reason for exam: elevated LFTs. TECHNIQUE: Real-time ultrasound of the right upper quadrant with image documentation. COMPARISON: CT abdomen/pelvis on 02/02/2023 FINDINGS: Liver: Liver measures 19.4 cm. Small echogenic lesion in the liver measures up to 6 mm and may represent a hemangioma. No intrahepatic bile duct dilation. Gallbladder: Nonspecific mild gallbladder wall thickening. No definite stones or sludge. Negative sonographic Delgado's sign. Common bile duct: Unremarkable as visualized. No stones. No dilation. Normal common bile duct measuring 2.1 mm. Pancreas: Not evaluated due to overlying bowel gas. Right kidney: Right kidney measures 12.0 cm in length. No hydronephrosis or stone. Aorta: Visualized portions of the abdominal aorta are grossly unremarkable. Inferior vena cava: Visualized portions of the IVC are grossly unremarkable. Portal vein: Patent with normal direction of flow. Free fluid: No ascites. IMPRESSION: 1. Hepatomegaly. Possible small hemangioma in the liver. 2. Nonspecific gallbladder wall thickening. No cholelithiasis. Negative sonographic Delgado's sign. Electronically signed by: Irene Moses M.D. 01/15/24 21:29 PM
[2024-01-16] MEDS: DOXYCYCLINE HYCLATE 100 MG in DEXTROSE 5% MINI-B 100 ML IV SCH (05:18)
--- NOTE | 2024-01-16 08:06 | Hospitalist Progress Note ---
Date of Service January 16, 2024 Assessment & Plan (1) Recurrent fever: (2) Elevated liver enzymes: (3) Acute hyponatremia: Plan Syed Lutz is a 53yo male who presents with >6 months of relapsing high fevers and cough. Cyclical fevers Presented to ED due to recurrent high-grade fever, respiratory symptoms with productive sputum (yellow to red/brown), body aches, generalized fatigue Has been on multiple courses of Augmentin and Bactrim with initial improvement but recurrence of symptoms after 1-2d Reports being bitten by mosquito while birding in [facility] January 2023, when that region had a malaria outbreak Blood cultures, tickborne panel, peripheral smear including malaria, sputum culture with Gram stain, acute hepatitis panel ordered prior to admission ESR and CRP elevated to 47 and 16.47 respectively. No leukocytosis, pt is now afebrile, CXR showed no focal consolidations Check CBC, CMP, mag, PT/IN Given 1 dose of ceftriaxone and doxycycline in the ED; Continue Doxycycline 100 mg PO bid Given 1.5 L NSS in the ED, then maintenance LR overnight Ibuprofen as needed for pain and fever + daily pantoprazole Infectious disease has been consulted ---Ordered HV testing ---Follow up tick/ blood smears, Anaplasma/ ehrlichia pcr/ ---Added Borrelia myomotoi PCR ---Follow up acute vial hepatitis panel ---Added Cefepime 2 g iv q12h pending ID and sensi of GNR in sputum Elevated liver enzymes AST 125 in ED, 63 this morning; ALT was 225 and now 167; ALP was 232 and now 230 no abdominal pain, nausea, vomiting, or diarrhea; no signs of scleral icterus or jaundice Liver US showed Hepatomegaly, poss small hemangioma, nonspecific gallbladder wall thickening. No cholelithiasis. Acute hyponatremia Sodium of 129 at admission, 133 today with chloride of 101 Suspect this is due to poor oral intake and dehydration Status post 1.5 L NSS in ED + maintenance LR overnight Monitor a.m. sodium level Bilateral SCDs for DVT prophylaxis Heart healthy diet Admission and Anticipated Discharge Date Admission Date: January 15, 2024 Supervising Physician Co-Signing Physician Notes Attending attestation Pt seen and examined in concert with Dr. Mallory. In agreement with the documented findings as noted in the resident documentation with any exceptions or additions as noted here. Resting comfortably in bed with improved cough, no new fever nor worsening fatigue. On examination, S1/S2 nl RRR no MCG. CTAB. Abd NT/ND BS+ve. Fever of unknown origin - ID consult - extensive evaluation pending sendout. Add HIV, would recommend RPR, GC/CT as well. Follow up pending cultures. Continue doxy. Consider transition to PO based on ID recommendations. Else see resident documentation as noted. Subjective Pt presents w cyclical fevers for >6 months and acute worsening of associated sx. He reports going birding in [facility] in January 2023, and realizing in retrospect that his family was there during a malaria outbreak in the exact region they visited. Approx 4 months after this trip, he began experiencing high fevers (to 104F) and cough that were relapsing/remitting and occur fairly consistently every 3-4 wks. The cough is productive of yellow/brown sputum and a/w COX and vomiting when severe, and the fever is a/w chills and sweats. He also reports muscle/body aches. He reports that the cough since January 08 has been particularly severe, resulting in pain, COX, vomiting blood, and nearly blacking out. He has tried a few abx (perscribed and otherwise) and reports feeling better for 1-2 days before sx return. He also states he has always had nosebleeds, but they lasted a few minutes and were easy to resolve in the past, whereas they have been more persistent for the past year and one particular episode that lasted 12h almost sent him to the ER. His h/o asthma has also worsened, with him requiring steroid support "more often in the past 6 months than in the prior decade." He had COVID in Sep 2023, along with everyone else in his household, but reports that his only sx was a runny nose. He states that prior to this year, his illnesses have been similarly mild and quick to resolve. He is an avid bicyclist but has been more sedentary as his fever and cough worsened. He notes that he expected to gain weight given this change in activity, but has actually lost ~15 lbs in the past 6 months. Review of Systems 2 Constitutional: + fever, + sweats, + body aches and + we ight loss Ear, Nose, Mouth, Throat: no nasal congestion and no sore throat Respiratory: + cough, + change in sputum, + hemoptysi s, + pain with cough and + sputum production Cardiovascular: + lightheadedness; no chest pain, no pal pitations and no syncope Gastrointestinal: + vomiting Genitourinary: no dysuria, no urinary frequency, no urinary hesitancy or no hematuria Musculoskeletal: + joint pain, + myalgia and + body aches Integumentary: no rash, no skin ulcer, no wounds, no erythema, no pruritus and no unusual bruising Neurologic: + headache(s); no dizziness and no synco pe Hematologic / Lymphatic: no lymphadenopathy Physical Exam 2 Physical Exam: General: AOx3, NAD HEENT: NCAT, no LAD, no scleral icterus CV: RRR, no m/r/g Pulm: CTAB, no increased WOB, no active cough GI: nt/nd, +BS Neuro: PERRL, CN 2-12 grossly intact Integ: no lesions or rashes on extremities Results & Data Results & Data Vital Signs (Past 12 Hours) Vital Signs Temp Pulse Pulse Pulse Resp BP Pulse Ox 01/16/24 14:01 36.9 C 71 21 149/88 H 96 01/16/24 07:30 01/16/24 07:04 36.8 C 72 23 157/89 H 96 01/15/24 22:29 36.5 C 16 136/82 98 01/15/24 22:10 01/15/24 22:10 36.5 C 88 16 136/82 98 01/15/24 21:42 76 17 155/83 H 94 01/15/24 19:00 83 18 98 01/15/24 18:50 01/15/24 18:35 83 01/15/24 17:46 37.7 C H 01/15/24 17:40 85 20 127/78 94 Laboratory Results 01/16/24 07:18 01/16/24 07:18 01/15/24 14:31 Aerobic Blood Culture - Preliminary Blood No growth in Aerobic bottle after 24 hours. Anaerobic Blood Culture - Preliminary No growth in Anaerobic bottle after 24 hours. 01/15/24 14:31 Aerobic Blood Culture - Preliminary Blood No growth in Aerobic bottle after 24 hours. Anaerobic Blood Culture - Preliminary No growth in Anaerobic bottle after 24 hours. 01/15/24 16:53 Blood Parasites Smear - Final Blood 07/05/3101/15/24 01/15/24 07:18 17:58 13:26 WBC 6.45 RBC 4.55 L Hgb 13.8 L Hct 40.5 L MCV 89.0 MCH 30.3 MCHC 34.1 RDW Std Deviation 40.5 RDW Coeff of Lauryn 12.4 Plt Count 318 MPV 11.0 Immature Gran % (Auto) 1.9 Neut % (Auto) 84.1 Lymph % (Auto) 5.7 [place] % (Auto) 8.1 Eos % (Auto) 0.0 Baso % (Auto) 0.2 Neut # (Auto) 5.43 Lymph # (Auto) 0.37 L [place] # (Auto) 0.52 Eos # (Auto) 0.00 Baso # (Auto) 0.01 Immature Gran # (Auto) 0.12 ESR 47 H PT 10.9 INR 1.0 Sodium 133 L Potassium 4.1 Chloride 101 Carbon Dioxide 25 Anion Gap 7 BUN 7 Creatinine 0.72 Est Cr Clr Drug Dosing 127.2 Est GFR ( Amer) 121.7 Est GFR (Non-Af Amer) 105.0 BUN/Creatinine Ratio 9.7 L Glucose 139 H Calcium 8.5 L Magnesium 2.0 Total Bilirubin 0.8 D AST 63 H ALT 167 H Alkaline Phosphatase 230 H C-Reactive Protein 16.47 H Total Protein 6.5 Albumin 3.4 Globulin 3.1 Albumin/Globulin Ratio 1.1 Hep Bs Antigen Negative Hepatitis C Antibody Negative Diagnostic Findings Chest X-Ray 01/15/24 13:13 SINGLE VIEW CHEST CLINICAL HISTORY: Atypical chest pain FINDINGS: A PA chest radiograph is compared to study dated 01/13/2024. The cardiomediastinal silhouette is unremarkable. Chronic interstitial thickening similar to previous. The lungs and pleural spaces are clear. No pneumothorax is seen. The bony thorax is grossly intact. IMPRESSION: No active disease in the chest. ACT 112: Negative or not required by law. Electronically signed by: Kemar Guidry M.D. 01/15/2024 2:11 PM Liver Ultrasound 01/15/24 16:25 Exam(s): US LIVER EXAM: US Abdomen Limited, Right Upper Quadrant CLINICAL HISTORY: Reason for exam: elevated LFTs. TECHNIQUE: Real-time ultrasound of the right upper quadrant with image documentation. COMPARISON: CT abdomen/pelvis on 02/02/2023 FINDINGS: Liver: Liver measures 19.4 cm. Small echogenic lesion in the liver measures up to 6 mm and may represent a hemangioma. No intrahepatic bile duct dilation. Gallbladder: Nonspecific mild gallbladder wall thickening. No definite stones or sludge. Negative sonographic Delgado's sign. Common bile duct: Unremarkable as visualized. No stones. No dilation. Normal common bile duct measuring 2.1 mm. Pancreas: Not evaluated due to overlying bowel gas. Right kidney: Right kidney measures 12.0 cm in length. No hydronephrosis or stone. Aorta: Visualized portions of the abdominal aorta are grossly unremarkable. Inferior vena cava: Visualized portions of the IVC are grossly unremarkable. Portal vein: Patent with normal direction of flow. Free fluid: No ascites. IMPRESSION: 1. Hepatomegaly. Possible small hemangioma in the liver. 2. Nonspecific gallbladder wall thickening. No cholelithiasis. Negative sonographic Delgado's sign. Electronically signed by: Irene Moses M.D. 01/15/24 21:29 PM Resident Activity Tracking Resident Involvement: Resident Care Provided Care Provided: Adult [facility]
[2024-01-16 08:22] LABS: Basophils # (auto) 0.01 K/uL (0.00-0.20); Basophils % (auto) 0.2 %; Hematocrit (blood only) 40.5 % (42.0-52.0); Hemoglobin 13.8 g/dl (14.0-18.0); Immature Granulocytes # (auto) 0.12 K/uL (0.01-0.20); Immature Granulocytes % (auto) 1.9 %; Lymphocytes # (auto) 0.37 K/uL (1.20-3.40); Lymphocytes % (auto) 5.7 %; Mean Corpuscular Hemoglobin 30.3 pg (25.0-34.0); Mean Corpuscular Hgb Conc 34.1 g/dL (32.0-36.0); Monocytes # (auto) 0.52 K/uL (0.11-0.59); Monocytes % (auto) 8.1 %; Neutrophils # (auto) 5.43 K/uL (1.40-6.50); Neutrophils % (auto) 84.1 %; Platelet Count 318 K/uL (130-400); RDW Coefficient of Variation 12.4 % (11.5-14.5); RDW Standard Deviation 40.5 fL (36.4-46.3); Red Blood Count 4.55 M/uL (4.70-6.10); White Blood Count 6.45 K/ul (4.8-10.8)
[2024-01-16] MEDS: FLUTICASONE/VILANTEROL 200/25MCG 14 PUFFS/INHALER INH SCH (08:31)
[2024-01-16] MEDS: PANTOprazole 40 MG TAB PO SCH (08:32)
[2024-01-16 08:46] LABS: Prothrombin Time 10.9 Seconds (9.0-12.0)
[2024-01-16 08:53] LABS: Albumin Globulin Ratio 1.1 (0.9-2); Albumin Level 3.4 gm/dl (3.4-5.0); BUN Creatinine Ratio 9.7 (10-20); Bilirubin,Total 0.8 mg/dl (0.2-1.0); Calcium 8.5 mg/dl (8.6-10.3); Creatinine Clr Calc Pharmacy 127.2 ml/min; Est GFR (African American) 121.7 ml/min; Globulin 3.1 gm/dl (2.5-4.0); Potassium 4.1 mmol/L (3.5-5.1); Total Protein 6.5 gm/dl (6.0-8.3)
--- NOTE | 2024-01-16 13:50 | Infectious Disease Consult ---
Date of Consultation January 16, 2024 Assessment & Plan (1) Recurrent fever: (2) Acute hyponatremia: (3) Elevated liver enzymes: Plan This is 53 yo male with pmh of asthma and gerd who present for intermittent fevers in last 5 month with intermittent cough with asthma exacerbations. 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 He is with children. He traveled to [facility] about 1 year ago. About 5 months after returning he starting feeling Ill. In 08/31/23 he was diagnosed with H Influenza pneumonia. He responded well with antibiotics. After this he noted recurrent asthma exacerbations associated with coughing spells ( dry at t imes, productive at other times) , this is usually associated with high fevers. He follows with pcp and administration manager and has gotten about 4 courses of antibiotics ( Augmentin, most recently Bactrim) with these episodes with some relief. However approximately every 3 weeks the fevers recur with and sometimes without coughing episodes. He denies rash, arthragra, hemoptysis, night sweats abdominal pain, change in urine or bowel habits, malaise or fatigue. Between cycles of fevers he feels back to his baseline. He trains of his home bike and has not had decreased performance. He denies travel outside [place] since her returned from [facility] 1 year ago. He has traveled to [place] and was last in [facility] in 2017. More recently he has traveled to [facility] and [place]. He is sexually active with only one partner. He denies sick contacts, tick bites, mold exposure, animal bites. When in [facility] 1 year ago he endorsed mosquito bites. He believes there were some cases of Malaria while her traveled there. He has had fevers as high as 104 Recently he noted headaches if he coughs incessantly,but they resolve after. He denies unintentional weight loss. In rhe ED he was initially afebrile but developed a fever with T 38.6. He is on RA. Labs with WBC 8.19, plts 301, Bun 6 cr 0.86, sodium 129, total bili 1.6, AST 125, ALT 226, alk phos 232, procalcitonin 0.48. Respiratory voral panel is negative. Peripheral blood smear negative times 1. Lyme screen negative Chest x-ray with no infiltrate or acure finding. He received a dose of Ceftriaxone and was started on doxycycline. ID consulted for recurrent fevers with recurrent respiratory symptoms. On my exam, he feels well and is comfortable. He has been taking ibuprofen and acetaminophen for fevers at home. He denies history of Liver issues. RUQ US shows hepatomegaly possible small hemangioma in the liver and nonspecific gallbladder wall thickening w/o cholelithiasis Micro Sputum cx 01/14 rare epi cells. Few GPC Mod GNR rare hyphae GNR on cx Blood cx 01/14 NGTD Blood smear- No parasites times 1 Prior Micro Sputum cx 08/21/23 H Influenza , beta lac + Sputum cx 12/05/23 Aspergillus fumigatus ABX: Doxycycline 01/14- ongoing Ceftriaxone 01/14 #Cyclical Febrile illness for 5 months #Transaminitis #GNR on Sputum culture # Intermittent cough with asthma exacerbations #Travel to [facility] 1 year ago #R open fracture distal radius/ulnar w/ hardware He feels back to baseline when fever free since starting antibiotics . He has had cough with exacerbations in past but mild now. 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 He has an elevated procal with mild cough and GNR on sputum this admission.. Not on supplemental o2 or abnormal CXR. Has not traved outside the [place] > 1 year. Recommendations Ordered HIV testing Follow up tick panel, repeat blood smears, Anaplasma/ ehrlichia pcr Added Borrelia myomotoi PCR Follow up acute viral hepatitis panel Continue Doxycycline 100 mg PO bid Added Cefepime 2 g iv q12h pending ID and sensi of GNR in sputum Thank you for this consult. ID will continue to follow Mi Ayers MD, MPH Infectious Disease [facility], [facility] Call [phone] with questions Consultation Information Consultation was provided via telemedicine using two-way real-time interactive telecommunication between the patient and the telemedicine provider. For the duration of the visit, the provider was performing the assessment from a diffe rent facility than the patient. This includesuse of bluetooth stethoscope forauscultationperformed by the telepresenter that the telemedicine provider can hear if described in the physical exam. Airborne Operations Superintendent contact information: Please call [facility] Center . (Phone Number For Physician Use Only) After establishing a telemedicine visit, patient was: Patient was verified with two unique identifiers Time Spent with Patient: Initial => 75 min History of Present Illness Reason for Consultation: Recurrent fever and respiratory symptoms Requesting Physician: STEPHANIA Nagy Attending Physician: Tyler Hickman MD History of Present Illness This is 53 yo male with pmh of asthma and gerd who present for intermittent fevers in last 5 month with intermittent cough with asthma exacerbations. 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 He is with children. He traveled to [facility] about 1 year ago. About 5 months after returning he starting feeling Ill. In 08/31/23 he was diagnosed with H Influenza pneumonia. He responded well with antibiotics. After this he noted recurrent asthma exacerbations associated with coughing spells ( dry at times, productive at other times) , this is usually associated with high fevers. He follows with pcp and administration manager and has gotten about 4 courses of antibiotics ( Augmentin, most recently Bactrim) with these episodes with some relief. However approximately every 3 weeks the fevers recur with and sometimes without coughing episodes. He denies rash, arthragra, hemoptysis, night sweats abdominal pain, change in urine or bowel habits, malaise or fatigue. Between cycles of fevers he feels back to his baseline. He trains of his home bike and has not had decreased performance. He denies travel outside [place] since her returned from [facility] 1 year ago. He has traveled to [place] and was last in [facility] in 2017. More recently he has traveled to [facility] and [place]. He is sexually active with only one partner. He denies sick contacts, tick bites, mold exposure, animal bites. When in [facility] 1 year ago he endorsed mosquito bites. He believes there were some cases of Malaria while her traveled there. He has had fevers as high as 104 Recently he noted headaches if he coughs incessantly,but they resolve after. He denies unintentional weight loss. In rhe ED he was initially afebrile but developed a fever with T 38.6. He is on RA. Labs with WBC 8.19, plts 301, Bun 6 cr 0.86, sodium 129, total bili 1.6, AST 125, ALT 226, alk phos 232, procalcitonin 0.48. Respiratory voral panel is negative. Peripheral blood smear negative times 1. Lyme screen negative Chest x-ray with no infiltrate or acure finding. He received a dose of Ceftriaxone and was started on doxycycline. ID consulted for recurrent fevers with recurrent respiratory symptoms. On my exam, he feels well and is comfortable. He has been taking ibuprofen and acetaminophen for fevers at home. He denies history of Liver issues. RUQ US shows hepatomegaly possible small hemangioma in the liver and nonspecific gallbladder wall thickening w/o cholelithiasis Allergies Allergy/AdvReac Type Severity Reaction Status Date / Time latex Allergy Intermediate Rash Verified 01/13/24 15:02 Home Medications Medication Instructions Recorded Confirmed Type montelukast 10 mg tablet 10 mg PO DAILY #90 tabs 01/25/23 01/15/24 Rx fluticasone propionate 50 2 spray intranasal BID PRN 02/02/23 01/15/24 History mcg/actuation nasal Congestion spray,suspension albuterol sulfate 1.25 mg/3 mL 1.25 mg (3 mL) inhalation QID PRN 12/05/23 01/15/24 Rx solution for nebulization shortness of breath or wheezing #75 mL sulfamethoxazole 800 1 tab PO Q12H #20 tabs 01/13/24 01/15/24 Rx mg-trimethoprim 160 mg tablet (Bactrim DS) albuterol sulfate 90 mcg/actuation 2 puff inhalation Q4 PRN Shortness 01/15/24 01/15/24 History aerosol inhaler Of Breath Or Wheezing fluticasone 500 mcg-salmeterol 50 1 ea inhalation BID 01/15/24 01/15/24 History mcg/dose blistr powdr for inhalation (Wixela Inhub) Patient History Medical History Closed head injury Closed fracture of left clavicle Closed posterior dislocation of left shoulder Open fracture of right distal radius and ulna Haemophilus influenzae infection 08/28/23--states recent positive culture, being treated w/ augmentin Cough increase in productive cough and asthma symptoms x ~1 yr - was seen and treated w/ augmentin by pcp>>>>(culture positive for Haemophilus influenzea, bacterial infection) states symptoms are greatly improved and have mostly resolved since starting treatment Nausea and vomiting after administration of anesthetic agent Seasonal allergies History of COVID-19 09/2022- treated with Paxlovid Surgical History History of colonoscopy (~08/2023) History of surgery on arm Hx of wisdom tooth extraction History of nasal polypectomy Fracture of finger of right hand Family History Mother Multiple myeloma Social History Smoking Status: Never smoker Second Hand Exposure: No; Do You Dip or Chew Tobacco: No; Hx Alcohol Use: Yes Alcohol type: beer and wine Hx Substance Use: No Preferred Language: Maltese Communication Ability: Effective Dental Service Chief Required: No Beliefs That Will Affect Care: None marital status: Current Living Situation: Spouse current occupational status: employed Feels Safe at Home: Yes Safety Concerns: Feels Safe At This Time Assistive Devices: None Review of System A 10 point ROS obtained. Pertinent positives as per HPI Physical Exam Physical Exam: GEN- NAD HEENT- anicteric sclera, no oral lesions or ulcer.Fair dentition. Neck -supple Lymph nodes- No cervical, post auricular submental or axillary adenopathy Lungs- No supplemental O2, No increased work of breathing Skin - No rash, no ulcers or skin breakdown Abdomen- soft, Not tender, not distended. No rebound - No suprapubic or CVA tenderness MSk- Moves all extremities, no joint effusions, No spinal or paraspinal tenderness Neuro- Non focal, AAO*3 Psych- normal mood Results & Data Vital Signs (Past 12 Hours) Vital Signs Temp Pulse Resp BP Pulse Ox O2 Del Method 01/16/24 07:30 Room Air 01/16/24 07:04 36.8 C 72 23 157/89 H 96 Room Air Laboratory Results Laboratory Results - last 48 hr 01/15/24 01/15/24 01/15/24 13:26 14:31 17:58 WBC 8.19 RBC 4.91 Hgb 14.9 Hct 43.5 MCV 88.6 MCH 30.3 MCHC 34.3 RDW Std Deviation 40.7 RDW Coeff of Lauryn 12.7 Plt Count 301 MPV 10.4 Immature Gran % (Auto) 1.7 Neut % (Auto) 84.6 Lymph % (Auto) 4.9 [place] % (Auto) 5.9 Eos % (Auto) 2.7 Baso % (Auto) 0.2 Neut # (Auto) 6.93 H Lymph # (Auto) 0.40 L [place] # (Auto) 0.48 Eos # (Auto) 0.22 Baso # (Auto) 0.02 Immature Gran # (Auto) 0.14 ESR 47 H PT 11.1 INR 1.0 APTT 27 PTT Ratio 1.0 Sodium 129 L Potassium 4.1 Chloride 97 L Carbon Dioxide 25 Anion Gap 7 BUN 6 Creatinine 0.86 Est Cr Clr Drug Dosing 106.5 Est GFR ( Amer) 113.1 Est GFR (Non-Af Amer) 97.6 BUN/Creatinine Ratio 7.0 L Glucose 126 H Lactate 1.7 Calcium 8.5 L Magnesium Total Bilirubin 1.6 H AST 125 H ALT 226 H Alkaline Phosphatase 232 H Troponin I High Sens 8.7 C-Reactive Protein 16.47 H Total Protein 7.0 Albumin 3.7 Globulin 3.3 Albumin/Globulin Ratio 1.1 Procalcitonin 0.48 Adenovirus (PCR) Anaplasma Smear See Comment Babesia Smear See Comment B. pertussis DNA (PCR) B.parapertussis DNA PCR Lyme Disease Screen Negative C. pneumoniae DNA (PCR) Coronavirus OC43 (PCR) Coronavirus HKU1 (PCR) Coronavirus 229E (PCR) SARS-CoV-2 (PCR) Coronavirus NL63 (PCR) Hep Bs Antigen Negative Hepatitis C Antibody Negative Human Metapneumovir PCR Influenza Type A (PCR) Influenza Type B (PCR) M. pneumoniae (PCR) Parainfluenza 1 (PCR) Parainfluenza 2 (PCR) Parainfluenza 3 (PCR) Parainfluenza 4 (PCR) RSV (PCR) Entero/Rhino (PCR) 01/15/24 01/16/24 Unknown 07:18 WBC 6.45 RBC 4.55 L Hgb 13.8 L Hct 40.5 L MCV 89.0 MCH 30.3 MCHC 34.1 RDW Std Deviation 40.5 RDW Coeff of Lauryn 12.4 Plt Count 318 MPV 11.0 Immature Gran % (Auto) 1.9 Neut % (Auto) 84.1 Lymph % (Auto) 5.7 [place] % (Auto) 8.1 Eos % (Auto) 0.0 Baso % (Auto) 0.2 Neut # (Auto) 5.43 Lymph # (Auto) 0.37 L [place] # (Auto) 0.52 Eos # (Auto) 0.00 Baso # (Auto) 0.01 Immature Gran # (Auto) 0.12 ESR PT 10.9 INR 1.0 APTT PTT Ratio Sodium 133 L Potassium 4.1 Chloride 101 Carbon Dioxide 25 Anion Gap 7 BUN 7 Creatinine 0.72 Est Cr Clr Drug Dosing 127.2 Est GFR ( Amer) 121.7 Est GFR (Non-Af Amer) 105.0 BUN/Creatinine Ratio 9.7 L Glucose 139 H Lactate Calcium 8.5 L Magnesium 2.0 Total Bilirubin 0.8 D AST 63 H ALT 167 H Alkaline Phosphatase 230 H Troponin I High Sens C-Reactive Protein Total Protein 6.5 Albumin 3.4 Globulin 3.1 Albumin/Globulin Ratio 1.1 Procalcitonin Adenovirus (PCR) Not Detected Anaplasma Smear Babesia Smear B. pertussis DNA (PCR) Not Detected B.parapertussis DNA PCR Not Detected Lyme Disease Screen C. pneumoniae DNA (PCR) Not Detected Coronavirus OC43 (PCR) Not Detected Coronavirus HKU1 (PCR) Not Detected Coronavirus 229E (PCR) Not Detected SARS-CoV-2 (PCR) Not Detected Coronavirus NL63 (PCR) Not Detected Hep Bs Antigen Hepatitis C Antibody Human Metapneumovir PCR Not Detected Influenza Type A (PCR) Not Detected Influenza Type B (PCR) Not Detected M. pneumoniae (PCR) Not Detected Parainfluenza 1 (PCR) Not Detected Parainfluenza 2 (PCR) Not Detected Parainfluenza 3 (PCR) Not Detected Parainfluenza 4 (PCR) Not Detected RSV (PCR) Not Detected Entero/Rhino (PCR) Not Detected Microbiology 01/15/24 16:53 Blood Blood Parasites Smear - Preliminary Diagnostic Findings Chest X-Ray 01/15/24 13:13 SINGLE VIEW CHEST CLINICAL HISTORY: Atypical chest pain FINDINGS: A PA chest radiograph is compared to study dated 01/13/2024. The cardiomediastinal silhouette is unremarkable. Chronic interstitial thickening similar to previous. The lungs and pleural spaces are clear. No pneumothorax is seen. The bony thorax is grossly intact. IMPRESSION: No active disease in the chest. ACT 112: Negative or not required by law. Electronically signed by: Kemar Guidry M.D. 01/15/2024 2:11 PM Liver Ultrasound 01/15/24 16:25 Exam(s): US LIVER EXAM: US Abdomen Limited, Right Upper Quadrant CLINICAL HISTORY: Reason for exam: elevated LFTs. TECHNIQUE: Real-time ultrasound of the right upper quadrant with image documentation. COMPARISON: CT abdomen/pelvis on 02/02/2023 FINDINGS: Liver: Liver measures 19.4 cm. Small echogenic lesion in the liver measures up to 6 mm and may represent a hemangioma. No intrahepatic bile duct dilation. Gallbladder: Nonspecific mild gallbladder wall thickening. No definite stones or sludge. Negative sonographic Delgado's sign. Common bile duct: Unremarkable as visualized. No stones. No dilation. Normal common bile duct measuring 2.1 mm. Pancreas: Not evaluated due to overlying bowel gas. Right kidney: Right kidney measures 12.0 cm in length. No hydronephrosis or stone. Aorta: Visualized portions of the abdominal aorta are grossly unremarkable. Inferior vena cava: Visualized portions of the IVC are grossly unremarkable. Portal vein: Patent with normal direction of flow. Free fluid: No ascites. IMPRESSION: 1. Hepatomegaly. Possible small hemangioma in the liver. 2. Nonspecific gallbladder wall thickening. No cholelithiasis. Negative sonographic Delgado's sign. Electronically signed by: Irene Moses M.D. 01/15/24 21:29 PM Medications Administered Home Medications Medication Instructions Recorded Confirmed Last Taken montelukast 10 mg tablet 10 mg PO DAILY #90 tabs 01/25/23 01/15/24 09/02/23 fluticasone propionate 50 2 spray intranasal BID PRN 02/02/23 01/15/24 09/03/23 mcg/actuation nasal Congestion spray,suspension albuterol sulfate 1.25 mg/3 mL 1.25 mg (3 mL) inhalation QID PRN 12/05/23 01/15/24 Unknown solution for nebulization shortness of breath or wheezing #75 mL sulfamethoxazole 800 1 tab PO Q12H #20 tabs 01/13/24 01/15/24 Unknown mg-trimethoprim 160 mg tablet (Bactrim DS) albuterol sulfate 90 mcg/actuation 2 puff inhalation Q4 PRN Shortness 01/15/24 01/15/24 Unknown aerosol inhaler Of Breath Or Wheezing fluticasone 500 mcg-salmeterol 50 1 ea inhalation BID 01/15/24 01/15/24 Unknown mcg/dose blistr powdr for inhalation (Shadi Krishna) Active Medications Generic Name Dose Route Start Last Admin Trade Name Freq PRN Reason Stop Dose Admin Fluticasone/Vilanterol 1 puffs 01/16/24 09:00 01/16/24 08:31 Fluticasone/Vilanterol 200/25mcg 14 Puffs/Inhaler INH 02/15/24 08:59 1 puffs DAILY BRYANT Administration Guaifenesin 600 mg 01/15/24 21:00 01/16/24 08:32 Guaifenesin 600 Mg Tabcr PO 02/14/24 20:59 600 mg Q12 BRYANT Administration Doxycycline Hyclate 100 mg/ 100 mls @ 50 mls/hr 01/16/24 05:30 01/16/24 08:30 Dextrose IV 01/23/24 05:29 Infused Q12H BRYANT Infusion Pantoprazole Sodium 40 mg 01/16/24 09:00 01/16/24 08:32 Pantoprazole 40 Mg Tab PO 02/15/24 08:59 40 mg DAILY BRYANT Administration
[2024-01-16] MEDS: CEFEPIME 2,000 MG in SYRINGE 0 ML IV SCH (17:11)
[2024-01-16] MEDS: IBUPROFEN 200 MG TAB PO PRN (17:34)
[2024-01-16] MEDS ORDERED: Nursing to Pharmacy Communication SCH (20:30)
[2024-01-17 07:38] LABS: Basophils # (auto) 0.04 K/uL (0.00-0.20); Basophils % (auto) 0.7 %; Eosinophils # (auto) 0.33 K/uL (0.00-0.50); Eosinophils % (auto) 5.8 %; Hematocrit (blood only) 40.8 % (42.0-52.0); Hemoglobin 13.8 g/dl (14.0-18.0); Immature Granulocytes % (auto) 1.8 %; Lymphocytes # (auto) 0.84 K/uL (1.20-3.40); Lymphocytes % (auto) 14.8 %; Mean Corpuscular Hemoglobin 30.1 pg (25.0-34.0); Mean Corpuscular Hgb Conc 33.8 g/dL (32.0-36.0); Mean Corpuscular Volume 88.9 fL (80.0-100.0); Mean Platelet Volume 10.4 fL (9.4-12.4); Monocytes # (auto) 0.78 K/uL (0.11-0.59); Monocytes % (auto) 13.7 %; Neutrophils # (auto) 3.59 K/uL (1.40-6.50); Neutrophils % (auto) 63.2 %; Platelet Count 314 K/uL (130-400); RDW Coefficient of Variation 12.4 % (11.5-14.5); RDW Standard Deviation 40.7 fL (36.4-46.3); Red Blood Count 4.59 M/uL (4.70-6.10); White Blood Count 5.68 K/ul (4.8-10.8)
[2024-01-17 07:58] LABS: Albumin Level 3.4 gm/dl (3.4-5.0); BUN Creatinine Ratio 13.2 (10-20); Bilirubin,Total 0.5 mg/dl (0.2-1.0); Calcium 8.6 mg/dl (8.6-10.3); Creatinine Clr Calc Pharmacy 134.7 ml/min; Est GFR (African American) 124.6 ml/min; Est GFR (Non-African American) 107.5 ml/min; Globulin 3.3 gm/dl (2.5-4.0); Magnesium 1.9 mg/dl (1.7-2.4); Potassium 4.2 mmol/L (3.5-5.1); Total Protein 6.7 gm/dl (6.0-8.3)
[2024-01-17 08:05] LABS: INR 0.9 (0.9-1.1); Prothrombin Time 9.9 Seconds (9.0-12.0)
[2024-01-17 12:08] LABS: Hepatitis A Antibody IgM NON-REACTIVE (NON-REACTIVE); Hepatitis B Core Antibody IgM NON-REACTIVE (NON-REACTIVE)
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
[2024-01-17] MEDS ORDERED: DOXYCYCLINE HYCLATE 100 MG CAP PO SCH (21:00)
[2024-01-19 17:42] LABS: Babesia microti DNA Not Detected (Not Detected)
[2024-01-20 22:27] LABS: Borrelia miyamotoi DNA Not Detected (Not Detected); Borrelia miyamotoi Source WHOLE BLOOD
== END 2024-01-17 17:30 | disposition home or self-care (01) | DRG 868 ==
LOC: ED 13:02 → SUATTDRO 17:11 → EDINP 17:11 → 3W 18:50